=== PATIENT | female | born 1935 | race Caucasian/White ===

== ENCOUNTER 2018-12-23 08:45 | Outpatient (CLI) | payer MEDICARE, OTHER ==
--- NOTE | 2018-12-23 12:20 | MRI ---
MRI CERVICAL SPINE WITHOUT CONTRAST: INDICATIONS: History of right shoulder pain and neck pain. COMPARISON: None. FINDINGS: The bone marrow signal intensity appears within normal limits. The visualized posterior fossa is unr emarkable appearance. At C2-C3, there is facet joint degenerative change, but no appreciable central canal or neural forami nal narrowing. At C3-C4, there is a mild broad-based bulge with facet joint degenerative change, but no appreciable central canal or neural foraminal narrowing. At C4-C5, there is advanced facet joint degenerative change. There is uncovertebral hypertrophy, gre ater on the left. There is moderate bilateral neural foraminal narrowing. At C5-C6, there is a broad-based bulge with uncovertebral hypertrophy and facet joint degenerative ch bhavin, greater on the right, inducing moderate right neural foraminal narrowing. At C6-C7, there is a broad-based bulge with uncovertebral hypertrophy, inducing mild bilateral neural foraminal narrowing and mild central canal narrowing. No cord compression is evident. At C7-T1, there is no appreciable central canal or neural foraminal narrowing. IMPRESSION: 1. Mild spondylosis of the cervical spine. 2. Mild central canal narrowing at C6-C7. 3. Neural foraminal narrowing, as detailed above. POS: [facility]
--- NOTE | 2018-12-23 12:27 | MRI ---
MRI LUMBAR SPINE WITHOUT CONTRAST: INDICATIONS: An 83-year-old female with knee and back pain. COMPARISON: None. FINDINGS: There is prominent dextroscoliosis of the lumbar spine, centered at the L2 level. The compensatory c urve is seen at L4-L5. No bone marrow signal abnormality is evident. The conus is seen to terminate proximally at L1. The visualized retroperitoneal and paravertebral soft tissues are unremarkable appearing. At L5-S1, there is a broad-based bulge with facet hypertrophy, but no appreciable central canal or ne ural foraminal narrowing. At L4-L5, there is a broad-based disk osteophyte complex and facet hypertrophy, inducing moderate rig ht and mild left neural foraminal narrowing. At the L3-L4 level, there is prominent facet joint degenerative change and ligamentum flavum hypertro phy, inducing mild bilateral neural foraminal narrowing and mild central canal narrowing. At the L2-L3 level, there is a broad-based bulge with facet hypertrophy, in addition to the scoliotic curve, inducing mild to moderate left neural foraminal narrowing. At the L1-L2 level, there is a broad-based bulge with facet hypertrophy, but no appreciable central c anal or neural foraminal narrowing. At the T12-L1 level, there is a broad-based bulge, inducing some mild bilateral neural foraminal narr owing. IMPRESSION: 1. Multilevel spondylosis of the lumbar spine with multilevel neural foraminal narrowing, as detaile d above. 2. Prominent dextroscoliosis of the lumbar spine. POS: [facility]
== END 2018-12-23 08:46 | disposition home or self-care (01) ==
LOC: TBSIIMAG 08:45
PROVIDERS: ATTEND Neurological Surgery
DX: M54.5 Low back pain (principal); M47.812 Spondylosis without myelopathy or radiculopathy, cervical region; M47.816 Spondylosis without myelopathy or radiculopathy, lumbar region; M48.061 Spinal stenosis, lumbar region without neurogenic claudication; M48.05 Spinal stenosis, thoracolumbar region; M48.02 Spinal stenosis, cervical region; M41.9 Scoliosis, unspecified
CPT/HCPCS: 72141; 72148

== ENCOUNTER 2023-11-02 08:26 | Emergency (ER) | payer MEDICARE, OTHER ==
[2023-11-02 09:47] LABS: #Basophils 0.04 10x3/uL (0.0-0.2); #Eosinphils Less than 0.03 10x3/uL (0.0-0.7); %Basophils 0.7 % (0.0-1.0); %Eosinophils 0.3 % (0.0-10.0); %Lymphocytes 14.9 % (21.0-51.0); %Monocytes 7.6 % (0.0-10.0); %Neutrophils 76.2 % (42.0-75.0); Hematocrit 46.3 % (36.0-47.0); Hemoglobin 15.4 g/dL (12.0-16.0); Mean Corpuscular HGB CONC 33.3 g/dL (32.0-36.0); Mean Corpuscular Hemoglobin 32.7 pg (27.0-31.0); Mean Corpuscular Volume 98.3 fL (78.0-98.0); Mean Platelet Volume 11.3 fL (7.4-10.4); Platelet Count 198 10x3/uL (130-400); RBC Distribution Width 12.4 % (11.5-14.5); Red Blood Cell (RBC) Count 4.71 mill/uL (4.20-5.40)
[2023-11-02] MEDS ORDERED: Ondansetron PF 4 MG/2 ML Vial ONE (09:59)
[2023-11-02 10:04] LABS: ALT (SGPT) 16 U/L (8-55); AST (SGOT) 24 U/L (5-34); Alkaline Phosphatase 75 U/L (40-110); Anion Gap 15 mmol/L (10-20); BUN (Urea Nitrogen) 12 mg/dL (9.8-20.1); Bilirubin, Total 0.8 mg/dL (0.2-1.2); Calc. Creatinine Clearance 0 mL/min (70-130); Carbon Dioxide 22 mmol/L (23-31); Chloride 104 mmol/L (98-107); Estimated GFR 82; Globulin 3.4 g/dL (2.4-3.5); Glucose 116 mg/dL (83-110); Potassium 3.9 mmol/L (3.5-5.1); Protein, Total 7.4 g/dL (5.8-8.1); Sodium 137 mmol/L (136-145)
[2023-11-02 10:08] LABS: Troponin I Less than 0.010 ng/mL (< 0.028)
[2023-11-02 10:33] LABS: Influenza A by NAA Not Detected (NotDetected); Influenza B by NAA Not Detected (NotDetected); SARS-CoV-2 NAA Rapid Test Not Detected (NotDetected)
[2023-11-02 12:26] LABS: Bilirubin Negative (Negative); Blood, Urine Negative (Negative); CAUTI Indications for Culture Alt mental st,lethar; Clarity Clear (Clear); Glucose, Urine (Dipstick) Normal (Negative); Ketone, Urine Trace mg/dL (Negative); Leukocyte 500 Leu/uL (Negative); Nitrite Negative (Negative); Protein, Urine (Dipstick) Negative (Neg-Trace); RBC/HPF 0-3 HPF (0-3); Specific Gravity, Urine 1.017 (1.002-1.036)
[2023-11-02 12:35] LABS: Bacteria/HPF 2+ HPF (None Seen)
[2023-11-02 12:37] LABS: Urine Culture Reflex Yes Yes
== END 2023-11-02 13:14 | disposition home or self-care (01) ==
LOC: ERS 08:26
DX: N39.0 Urinary tract infection, site not specified (principal); R11.2 Nausea with vomiting, unspecified; E78.5 Hyperlipidemia, unspecified; Z79.899 Other long term (current) drug therapy
CPT/HCPCS: 0240U; 80053; 81001; 84484; 85025; 87086; 93005; 96374; 99284; 36415; J2405